=== PATIENT | female | born 1975 | race African-American/Black ===

== ENCOUNTER 2017-10-10 23:08 | Emergency (ER) | payer BC ==
[2017-10-11] MEDS ORDERED: Naproxen 500 MG TAB ONE (01:30)
[2017-10-11] MEDS ORDERED: predniSONE 20 MG TAB ONE (01:30)
== END 2017-10-11 01:46 | disposition home or self-care (01) ==
LOC: MADERS 23:08
DX: M25.462 Effusion, left knee (principal); E11.9 Type 2 diabetes mellitus without complications; I10 Essential (primary) hypertension
CPT/HCPCS: 99283; J7506

== ENCOUNTER 2018-03-01 19:27 | Emergency (ER) | payer BC ==
[2018-03-01 20:52] LABS: Bilirubin Negative (Negative); Blood, Urine Negative (Negative); Clarity Slightly Cloudy (Clear); Glucose, Urine (Dipstick) Negative (Negative); Leukocyte Negative (Negative); Nitrite Negative (Negative); Protein, Urine (Dipstick) Negative (Neg-Trace)
[2018-03-01 21:03] LABS: Bacteria/HPF 2+ HPF (None Seen); RBC/HPF 0-3 HPF (0-3); Specific Gravity, Urine 1.028 (1.002-1.036)
[2018-03-01 21:17] LABS: Pregnancy Test - Urine (BHCG) Negative (Negative); Pregu Control Background? CLEAR/WHITE (CLR/WHITE); Pregu Control Bar Appear? YES (CONTROL BAR); Specific Gravity 1.028 (1.002-1.036)
[2018-03-01] MEDS ORDERED: Azithromycin 250 MG TAB ONE (21:54)
[2018-03-01] MEDS ORDERED: cefTRIAXone\\ROCEPHIN 250 MG VIAL ONE (21:54)
[2018-03-01] MEDS ORDERED: Ketorolac Tromethamine 30 MG/ML VIAL ONE (21:54)
[2018-03-04 23:03] LABS: Chlamydia by PCR Not Detected (NotDetected); GC by PCR Not Detected (NotDetected)
== END 2018-03-01 22:19 | disposition home or self-care (01) ==
LOC: MADERS 19:27
DX: M54.5 Low back pain (principal); N89.8 Other specified noninflammatory disorders of vagina; E03.9 Hypothyroidism, unspecified; I11.0 Hypertensive heart disease with heart failure; Z79.899 Other long term (current) drug therapy
CPT/HCPCS: 81001; 81025; 87086; 87480; 87491; 87510; 87591; 87660; 96372; J0696; J1885